=== PATIENT | female | born 1950 | race Caucasian/White ===

== ENCOUNTER 2017-07-20 00:01 | Inpatient (IN) ==
--- NOTE | 2017-07-20 00:47 | Emergency Department Note ---
IKen Emily, am scribing for, and in the presence of, Piotr Cm MD 00: 44. Soila Faria Charles R, MD, personally performed the services described in this documentation, ascribed by Felicia Rogers in my presence, and it is both accurate and complete . Arrival - Arrival Chief Complaint: Chest Pain Stated Complaint: Chest Pain transfer to from [facility] ED Nursing Triage Note: Patient was transfered from [facility] for chest pains and SOB. The patient stated that she was at home in the bed watching TV and started to have CP and when she got up to call for help she noticed that she was also having some SOB. The patient has a cardiac history, so she went to ER for Eval. Mode of Arrival: Stretcher Limitations: No Limitations Source: Patient Time Seen by Provider: 07/20/17 00:19 - History of Present Illness HPI Narrative: Pt is a 66 y/o female who was transferred from [facility] to ED for further evaluation of chest pain with SOB that suddenly started tonight while laying in the bed watching TV. She reports cutting grass, cleaning yard, shower and made dinner earlier yesterday, then laid down to watch TV when pain started. Pt describes pain in between breasts, pressure and squeezing sensation that would pulsate, in which would ease up some and start again. She states she went to living room where daughter was and realized she was having difficulty breathing. Pt had nausea going to the first facility but denies any now or neck or back pain. Pt has had 8 stents in 10 years and diet controlled borderline DM. Family reports pt had neck stiffness but no chest pain with past heart issues, but was unaware of sxs related to heart attacks. Onset (ago): hour(s) Consistency: constant Severity: mild, moderate Severity scale (1-10): 4 Quality: aching Allergies/Adverse Reactions: Allergies Allergy/AdvReac Type Severity Reaction Status Date / Time No Known Allergies Allergy Verified 08/16/15 20:04 Review of System - Review of System 12 point system: reviewed and no additional remarkable complaints except as stated - Review of System Constitutional: Absent: chills, diaphoresis, fever Respiratory: Present: respiratory distress (SOB). Absent: cough Cardiovascular: Present: chest pain (mid pressure and squeezing sensation). Absent: syncope Gastrointestinal: Present: nausea. Absent: abdominal pain, vomiting Genitourinary female: Absent: dysuria Musculoskeletal: Absent: back pain, leg pain, neck pain Skin: Absent: rash Neurological: Absent: headache Medical,Surgical,& Family Hx - Medical History Musculoskeletal: No history of: Amputation - Surgical History Cardiac Surgeries: Patient Denies: Cardiac Catheterization Thoracic Surgeries: Patient denies;: Organ Transplant, Lobectomy Neurologic Surgeries: Patient denies: Neurologic Surgery HEENT Surgeries: Patient denies: Tonsilectomy & Adenoidectomy Abdominal Surgeries: Patient denies: Abdominal Surgery - Family History Family History: Reports;: Family Diabetes, Family Heart Disease Denies;: Family Anesthesia Reaction, Family Cancer - Social History Smoking Status: Never smoker Frequency of Alcohol Use: None Type of Drug Use: None Marital Status: Single Lives With:: Children Functional capacity: independent ambulation Exam Vital Signs: Vital Signs Temperature 98.9 F 07/20/17 00:03 Pulse Rate 58 L 07/20/17 00:03 Respiratory Rate 18 07/20/17 00:03 Blood Pressure 158/60 07/20/17 00:03 O2 Sat by Pulse Oximetry 97 07/20/17 00:03 - General General appearance: alert, in no apparent distress - Head Head exam: Present: atraumatic, normocephalic - Eye Eye exam: Present: PERRL, EOMI - ENT ENT exam: Present: mucous membranes moist. Absent: mucous membranes dry - Neck Neck exam: Present: full ROM, trachea midline - Chest Chest inspection: Present: symmetric chest wall rise. Absent: tenderness - Respiratory Respiratory exam: Present: normal lung sounds bilaterally. Absent: respiratory distress - Cardiovascular Cardiovascular exam: Present: bradycardia, normal heart sounds - Extremities Exam Extremities exam: Present: full ROM, pedal edema (+1). Absent: tenderness - Neurological Exam Neurological exam: Present: alert, oriented X3, CN II-XII intact. Absent: motor sensory deficit - Psychiatric Psychiatric exam: Present: normal affect, normal mood - Skin Skin exam: Present: warm, dry Course - Consultations Consultation #1: Dr. Moura will admit patient Time: 00:45 Results - Labs Lab Results: I have reviewed the patients labs Labs: All results reviewed from previous facility cardiac enzymes are negative Disposition Clinical Impression: Chest pain, Atypical chest pain Case discussed with: patient, patient's family Disposition: Still a Patient Condition: Stable Time of Disposition: 00:45
[2017-07-20] MEDS ORDERED: MORPHINE 2 MG/1 ML SYRINGE IV PRN (02:16)
[2017-07-20] MEDS ORDERED: MAGNESIUM SULF RIDER 4 GM in PREMIX 1 EACH IV PRN (02:16)
[2017-07-20] MEDS ORDERED: SODIUM CHLORIDE 0.9% 1,000 ML IV SCH ×2 (02:16→11:00)
[2017-07-20] MEDS ORDERED: ONDANSETRON 4 MG/2 ML VIAL IV PRN (02:16)
[2017-07-20] MEDS ORDERED: GLUCAGON 1 MG VIAL IM PRN (02:16)
[2017-07-20] MEDS ORDERED: DEXTROSE 50% 25 GM/50 ML SYRINGE IV PRN (02:16)
[2017-07-20] MEDS ORDERED: MAGNESIUM SULF RIDER 2 GM in PREMIX 1 EACH IV PRN (02:16)
--- NOTE | 2017-07-20 02:20 | EKG Report ---
Stationary ECG Study [facility] ER Test Date: 07/20/2017 12:11:39 AM Pat Name: VIRI MAURER Department: Room: 277 Gender: F Health Information Specialist: : 1950 Requested by: Piotr Melgoza Order Number: [id number] Geronimo MD: JEFFY SAM Intervals [place] Rate: 51 P: 51 [place]: 204 QRS: 25 QRSD: 92 T: 39 QT: 416 QTc: 392 Interpretive Statements SINUS BRADYCARDIA LOW QRS VOLTAGE IN PRECORDIAL LEADS Electronically Signed On 07-20-17 17:12:18 CDT by JEFFY SAM [email or web address]
[2017-07-20 03:27] LABS: Basophils # 0.1 10*3/uL (0.0-0.2); Basophils % 1.1 % (0.0-0.8); Eosinophils # 0.3 10*3/uL (0.0-0.87); Eosinophils % 3.2 % (0.00-10.9); Hematocrit 39.2 VOL% (35.7-47.0); Hemoglobin 13.5 GM/DL (12.0-16.0); Immature Granulocytes % 0.4 %; Immature Granulocytes Absolute 0.03 #; Lymphocytes # 3.6 10*3/uL (1.4-4.0); Lymphocytes % 42.4 % (21.3-54.2); Mean Corpuscular HGB Conc 34.4 GM/DL (32-36); Mean Corpuscular Hemoglobin 30 PG (27-34); Mean Corpuscular Volume 86.2 FL (87-102); Mean Platelet Volume 10.9 FL (9.6-12.0); Monocytes # 0.5 10*3/uL (0.11-0.8); Monocytes % 5.8 % (1.7-12.7); Neutrophils % 47.1 % (38.7-73.9); Platelet Count 197 T/CUMM (130-400); Red Blood Count 4.55 MC/CUMM (3.8-5.5); Red Cell Distribution Width 13.2 % (9.3-17.3); White Blood Count 8.6 T/CUMM (4-12)
[2017-07-20 04:16] LABS: Troponin I Only < 0.015 NG/ML (0.00-0.045)
[2017-07-20 04:23] LABS: Albumin 3.6 G/DL (3.4-5.0); Bilirubin,Total 0.6 MG/DL (0.2-1.0); Calcium 8.8 MG/DL (8.5-10.1); Magnesium 2.1 MG/DL (1.8-2.4); Osmolality,Calculated 284.1 MOS/KG (273-304); Potassium 3.3 MMOL/L (3.5-5.1); Risk Ratio 3.75; Thyroid Stimulating Hormone 3.62 uIU/ml (0.358-3.74); Total Protein 6.3 G/DL (6.4-8.3); VLDL CHOLESTEROL 36.2 MG/DL
[2017-07-20] MEDS ORDERED: ENOXAPARIN 80 MG/0.8 ML SYRINGE SUBCUT SCH (06:00)
[2017-07-20] MEDS: NITROGLYCERIN 2% OINT 1 INCH/GM PACK TOP SCH ×2 (06:24→12:22)
[2017-07-20] MEDS ORDERED: ASPIRIN EC 325 MG TABLET PO SCH (09:00)
--- NOTE | 2017-07-20 09:07 | Cardiology History & Physical ---
<Roxana Stokes E - Last Filed: 07/20/17 09:55> Assessment and Plan - Time spent with patient Time spent with patient: Greater than 30 minutes (due to assessment, plan, and documentation) (1) Chest pain Status: Acute Assessment and plan: See plan of care listed below. Current Visit: Yes (2) Coronary artery disease Status: Chronic Assessment and plan: See plan of care listed below. Current Visit: Yes (3) Hypertension Status: Chronic Assessment and plan: See plan of care listed below. Current Visit: Yes (4) Hyperlipidemia Status: Chronic Assessment and plan: See plan of care listed below. Current Visit: Yes (5) SIDRA (obstructive sleep apnea) Status: Chronic Assessment and plan: See plan of care listed below. Current Visit: Yes (6) Obesity (BMI 30.0-34.9) Status: Chronic Assessment and plan: See plan of care listed below. 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 Moura PCP: Dr. Calvert Ms. Enrique is a 66 year old female who was transferred to our facility from [facility] in [place], [place] for further evaluation of chest pain. She has a history of coronary artery disease, hypertension, hyperlipidemia, LVH, obstructive sleep apnea, and obesity. She has a family history of premature CAD and is a former smoker. Her last cardiac catheterization October 2011 revealed patent stent to distal circumflex and proximal RCA. June 2016 echocardiogram demonstrated ejection fraction 55%, mild TR, and moderate to severe LVH. She was recently seen by Dr. 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 Ms. Enrique had a sudden onset of chest pain that began last night while lying in bed watching TV. She tells me that she worked outside all day yesterday without difficulty. 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 She states that she had been lying in bed for some time before her pain started. She notes that she had turned onto her right side and then she felt as if someone had grabbed her in the chest. She reports a midsternal pressure and squeezing sensation that she reports felt as if someone had a "vice metal grader" on her chest. She states she was unable to take a deep breath and felt as if it was difficult for her to breathe. This discomfort waxed and waned a few minutes before she called for her daughter, Quita, who was in the living room, to take her to the emergency room. She reports prior to leaving home, the pain had subsided and she only felt a "tightness" in her chest on the way to [place]. She is unsure how long the "grabbing" sensation lasted but believes it was no longer than 10-15 minutes. She notes no exacerbating or alleviating factors, nor any radiation of the pain. En route to [place], she had 2 waves of nausea without vomiting. She notes that she was not "in pain" upon arrival at [place], but received a sublingual nitroglycerin followed by 4 baby aspirin. Her other daughter reports she appeared diaphoretic and clammy when she arrived at the hospital during the night. She had a subsequent episode of chest pain while in the ER at [place] and was given a second nitroglycerin which she thinks helped her discomfort. She was then transferred to our facility for further evaluation where we were called to admit her. Ms. Enrique states it is not unusual for her to be sedentary for a couple of days and then decide to do lots of activity in one day (such as rearranging furniture ). She reports she did not have any exertional symptoms while performing her yardwork yesterday and states she did not really do more than she normally would. She does admit that she has had some dyspnea on exertion recently when walking approximately 74 yards uphill to her barn, but is unsure how long this has been going on. After being transferred to telemetry last night, she does report her left arm throbbing from her shoulders to her fingers although she had no associated symptoms with this and did not have concurrent chest pain. ASSESSMENT/PLAN: 1. CHEST PAIN - Some typical and atypical features. She has had 2 sets of negative cardiac biomarkers and unremarkable EKG. Given her symptomatology and history, will further discuss with Dr. Moura risks and benefits of stress testing vs. left heart catheterization. We will continue to cycle cardiac biomarkers and EKGs and monitor. 2. CORONARY ARTERY DISEASE - Her last cardiac catheterization October 2011 revealed patent stent to distal circumflex and proximal RCA. Continue DAPT, ESTRADA , statin. Will continue beta enriqueta once we have determined further workup regarding stress testing vs. left heart catheterization. 3. HYPERTENSION - Has been well controlled, now elevated this morning. Will resume home medications. Will hold bystolic for now in case we proceed with nuclear stress testing. 4. HYPERLIPIDEMIA - According to her clinic records, she is also on Crestor 20mg po daily which we will resume. Will repeat lipid panel. 5. OBSTRUCTIVE SLEEP APENA - Continue CPAP while asleep. 6. OBESITY - Encouraged lifestyle modifications with diet and exercise. 7. FORMER SMOKER Home Medications Medication Instructions Recorded Confirmed Type Aspirin [Ecotrin] 81 mg PO DAILY 07/20/17 07/20/17 History Clopidogrel [Plavix] 75 mg PO DAILY 07/20/17 07/20/17 History Furosemide 40 mg PO DAILY 07/20/17 07/20/17 History Lansoprazole 30 mg PO BID 07/20/17 07/20/17 History Nebivolol [Bystolic] 5 mg PO DAILY 07/20/17 07/20/17 History Quinapril [Accupril] 10 mg PO DAILY 07/20/17 07/20/17 History Allergies Allergy/AdvReac Type Severity Reaction Status Date / Time No Known Allergies Allergy Verified 08/16/15 20:04 Review of systems: - Constitutional: Present: fatigue, As per HPI. Absent: anorexia, chills, daytime sleepiness, excessive sweating, fever(s), frequent falls, headache(s), increased appetite, lethargy, malaise, night sweats, stops breathing during sleep, weakness, weight gain, weight loss. - EENT Eyes: Present: As per HPI. Absent: blurry vision, diplopia, loss of vision Ears: Present: As per HPI. Absent: decreased hearing, ear discharge, ear pain Nose, mouth and throat: Present: As per HPI. Absent: dysphagia, epistaxis, headache(s), hoarseness, lip swelling, nasal congestion, neck mass, neck pain, sinus pressure, sore throat, throat swelling, tongue swelling, vertigo - Cardiovascular: Present: chest pain at rest, dyspnea, occasional edema, diaphoresis, as per HPI. Absent: chest pain with activity, dyspnea on exertion , claudication, radiating jaw, neck or arm pain, lightheadedness, orthopnea, palpitations, PND - Respiratory: Present: dyspnea, as per HPI. Absent: dyspnea on exertion, cough , hemoptysis, wheezing, snoring, pain on inspiration - Gastrointestinal: Present: nausea, As per HPI. Absent: abdominal pain, bloating, change in bowel habits, constipation, diarrhea, heartburn, hematemesis , hematochezia, loose stools, melena, vomiting - Genitourinary: Present: As per HPI. Absent: difficulty urinating, dysuria, flank pain, hematuria, nocturia, urinary frequency, urinary incontinence - Musculoskeletal: Present: As per HPI. Absent: arthralgias, back pain, joint swelling, limited range of motion, muscle cramps, muscle weakness, myalgias - Neurological: Present: dizziness, As per HPI. Absent: abnormal gait, abnormal speech, behavioral changes, confusion, convulsions, disequilibrium, focal weakness, frequent falls, headache(s), memory loss, numbness, paresthesias, radicular pain, syncope, tremor(s) - Psychiatric: Present: As per HPI. Absent: anxiety, confusion, depression, panic attacks - Endocrine: Present: fatigue, As per HPI. Absent: cold intolerance, heat intolerance, polydipsia, polyphagia - Hematologic/Lymphatic: Present: As per HPI. Absent: easy bleeding, easy bruising, lymphadenopathy Medical,Surgical,& Family Hx - Medical History Cardio: History of: CAD, Hypertension, [place] Endocrine: History of: Dyslipidemia Respiratory: History of: Obstructive Sleep Apnea Gastrointestinal: History of: GERD Musculoskeletal: History of: Back/Neck Problems (arthritis) No history of: Amputation - Surgical History Cardiac Surgeries: Sugical HX of: Cardiac Catheterization (stents x 7) Thoracic Surgeries: Patient denies;: Organ Transplant, Lobectomy Neurologic Surgeries: Patient denies: Neurologic Surgery HEENT Surgeries: Patient denies: Thyroid Surgery, Tonsilectomy & Adenoidectomy Abdominal Surgeries: Surgical HX of: Abdominal Surgery, Appendectomy, Cholecystectomy Reproductive Surgeries: Surgical HX of;: Breast Surgery, Gynecologic Surgery, Hysterectomy Patient denies;: Genitourinary Surgery - Family History Family History: Reports;: Family Diabetes, Family Heart Disease Denies;: Family Anesthesia Reaction, Family Cancer - Social History Smoking Status: Former smoker Frequency of Alcohol Use: None Type of Drug Use: None Marital Status: Lives With:: Children Functional capacity: independent ambulation Cardiology Physical Exam - Constitutional Vitals: Vital Signs Temp Pulse Resp BP Pulse Ox 97.9 F 60 18 189/76 93 L 07/20/17 08:00 07/20/17 08:00 07/20/17 08:00 07/20/17 08:00 07/20/17 08:00 Intake and Output 07/19/17 07/20/17 07/20/17 22:59 06:59 14:59 Intake Total 0 / 0 Balance 0 / 0 Intake: Oral 0 / 0 Other: # Voids 1 # Bowel Movements 0 Weight 183 lb 6 oz Exam: General appearance: Pleasant and cooperative. Overweight, no acute distress. Head exam: Present: normal inspection, normocephalic, atraumatic. Absent: hematoma, laceration Eye exam: Present: EOMI. Absent: conjunctival injection, nystagmus, periorbital swelling, scleral icterus, laceration to eyelids Pupils: Present: PERRL. Absent: constricted, dilated, fixed, irregular, unequal ENT exam: Present: normal exam, normal external ear exam Neck exam: Present: normal inspection. Absent: lymphadenopathy, meningismus, tenderness, thyromegaly, carotid bruit Respiratory exam: Present: clear to auscultation bilaterally. Absent: accessory muscle use, chest wall tenderness, rales, rhonchi, wheezing. Cardiovascular exam: Present: regular rate and rhythm. Absent: gallop, JVD, rubs, murmur GI/Abdominal exam: Present: normal bowel sounds, soft. Absent: distended, firm , guarding, hernia, mass, tenderness, rebound. Extremities exam: Present: normal inspection, normal capillary refill. Upper extremity pulses 2+. Lower extremity pulses 2+. Absent: calf tenderness, edema Musculoskeletal: Present: No Fluid Collection, No Pain, Normal Range of Motion Back exam: Present: normal inspection. Absent: muscle spasm, vertebral tenderness Neurological exam: Present: alert, oriented X3, grossly intact without resting or essential tremor Psychiatric exam: Present: normal affect, normal mood Skin exam: Present: normal color, warm, dry, intact. Absent: cyanosis, diaphoretic, rash, urticaria Result/EKG - Labs CBC & BMP: 07/20/17 03:22 07/20/17 03:22 Lab Results: I have reviewed the past 24 hour labs Labs: Laboratory Results - last 24 hr 07/20/17 07/20/17 07/20/17 03:21 03:22 03:22 WBC 8.6 RBC 4.55 Hgb 13.5 Hct 39.2 MCV 86.2 L MCH 30 MCHC 34.4 RDW 13.2 Plt Count 197 MPV 10.9 Neut % (Auto) 47.1 Lymph % (Auto) 42.4 [place] % (Auto) 5.8 Eos % (Auto) 3.2 Baso % (Auto) 1.1 H Neut # (Auto) 4.0 Lymph # (Auto) 3.6 [place] # (Auto) 0.5 Eos # (Auto) 0.3 Baso # (Auto) 0.1 Immature Gran % 0.4 Nucleated RBC % 0.0 Immature Gran # 0.03 Nucleated RBCs # 0.00 Immature Plt Fraction 0.0 Sodium Potassium Chloride Carbon Dioxide Anion Gap BUN Creatinine GFR Calculation BUN/Creatinine Ratio Glucose Calculated Osmolality Calcium Magnesium Total Bilirubin AST ALT Alkaline Phosphatase Total Creatine Kinase 29 CK-MB (CK-2) < 1.0 Troponin I < 0.015 B-Natriuretic Peptide 9 Total Protein Albumin Globulin Albumin/Globulin Ratio Triglycerides Cholesterol LDL Cholesterol VLDL Cholesterol HDL Cholesterol Heart Disease Risk Ratio Free T4 TSH 3rd Generation 07/20/17 07/20/17 03:22 03:22 WBC RBC Hgb Hct MCV MCH MCHC RDW Plt Count MPV Neut % (Auto) Lymph % (Auto) [place] % (Auto) Eos % (Auto) Baso % (Auto) Neut # (Auto) Lymph # (Auto) [place] # (Auto) Eos # (Auto) Baso # (Auto) Immature Gran % Nucleated RBC % Immature Gran # Nucleated RBCs # Immature Plt Fraction Sodium 142 Potassium 3.3 L Chloride 108 H Carbon Dioxide 30 Anion Gap 7.3 BUN 14 Creatinine 0.80 GFR Calculation 82 BUN/Creatinine Ratio 17.00 Glucose 109 H Calculated Osmolality 284.1 Calcium 8.8 Magnesium 2.1 Total Bilirubin 0.60 AST 14 ALT 19 Alkaline Phosphatase 107 Total Creatine Kinase CK-MB (CK-2) Troponin I B-Natriuretic Peptide Total Protein 6.3 L Albumin 3.6 Globulin 2.7 Albumin/Globulin Ratio 1.3 Triglycerides 181 H Cholesterol 120 LDL Cholesterol 63.0 VLDL Cholesterol 36.2 HDL Cholesterol 32 L Heart Disease Risk Ratio 3.75 Free T4 1.23 TSH 3rd Generation 3.620 - EKG EKG results: interpreted by me, sinus rhythm <MartellKiaKaylee - Last Filed: 07/20/17 14:07> History of Present Illness History of present illness: I have personally interviewed and evaluated the patient, reviewed the chart and discussed medical decision-making with practitioner Kike. I have read this note and agree with her documentation here in. We discussed options with the patient, and finally agreed we will proceed with left heart catheterization given the nature of her symptoms and how frightening they were, and her underlying severe coronary artery disease. Cardiology Physical Exam - Constitutional Vitals: Vital Signs Temp Pulse Resp BP Pulse Ox 98.0 F 53 L 18 146/82 95 07/20/17 11:47 07/20/17 11:47 07/20/17 11:47 07/20/17 11:47 07/20/17 11:47 Intake and Output 07/19/17 07/20/17 07/20/17 23:59 07:59 15:59 Intake Total 0 / 0 Balance 0 / 0 Intake: Oral 0 / 0 Other: # Voids 1 # Bowel Movements 0 Weight 83.178 kg Patient Weight 07/20/17 23:59 Weight 83.178 kg Result/EKG - Labs CBC & BMP: 07/20/17 03:22 07/20/17 03:22 Labs: Laboratory Results - last 24 hr 07/20/17 07/20/17 07/20/17 03:21 03:22 03:22 WBC 8.6 RBC 4.55 Hgb 13.5 Hct 39.2 MCV 86.2 L MCH 30 MCHC 34.4 RDW 13.2 Plt Count 197 MPV 10.9 Neut % (Auto) 47.1 Lymph % (Auto) 42.4 [place] % (Auto) 5.8 Eos % (Auto) 3.2 Baso % (Auto) 1.1 H Neut # (Auto) 4.0 Lymph # (Auto) 3.6 [place] # (Auto) 0.5 Eos # (Auto) 0.3 Baso # (Auto) 0.1 Immature Gran % 0.4 Nucleated RBC % 0.0 Immature Gran # 0.03 Nucleated RBCs # 0.00 Immature Plt Fraction 0.0 Sodium Potassium Chloride Carbon Dioxide Anion Gap BUN Creatinine GFR Calculation BUN/Creatinine Ratio Glucose POC Glucose Calculated Osmolality Calcium Magnesium Total Bilirubin AST ALT Alkaline Phosphatase Total Creatine Kinase 29 CK-MB (CK-2) < 1.0 Troponin I < 0.015 B-Natriuretic Peptide 9 Total Protein Albumin Globulin Albumin/Globulin Ratio Triglycerides Cholesterol LDL Cholesterol VLDL Cholesterol HDL Cholesterol Heart Disease Risk Ratio Free T4 TSH 3rd Generation 07/20/17 07/20/17 07/20/17 03:22 03:22 10:20 WBC RBC Hgb Hct MCV MCH MCHC RDW Plt Count MPV Neut % (Auto) Lymph % (Auto) [place] % (Auto) Eos % (Auto) Baso % (Auto) Neut # (Auto) Lymph # (Auto) [place] # (Auto) Eos # (Auto) Baso # (Auto) Immature Gran % Nucleated RBC % Immature Gran # Nucleated RBCs # Immature Plt Fraction Sodium 142 Potassium 3.3 L Chloride 108 H Carbon Dioxide 30 Anion Gap 7.3 BUN 14 Creatinine 0.80 GFR Calculation 82 BUN/Creatinine Ratio 17.00 Glucose 109 H POC Glucose Calculated Osmolality 284.1 Calcium 8.8 Magnesium 2.1 Total Bilirubin 0.60 AST 14 ALT 19 Alkaline Phosphatase 107 Total Creatine Kinase 41 D CK-MB (CK-2) 1.1 Troponin I < 0.015 B-Natriuretic Peptide Total Protein 6.3 L Albumin 3.6 Globulin 2.7 Albumin/Globulin Ratio 1.3 Triglycerides 181 H Cholesterol 120 LDL Cholesterol 63.0 VLDL Cholesterol 36.2 HDL Cholesterol 32 L Heart Disease Risk Ratio 3.75 Free T4 1.23 TSH 3rd Generation 3.620 07/20/17 07/20/17 10:20 11:59 WBC RBC Hgb Hct MCV MCH MCHC RDW Plt Count MPV Neut % (Auto) Lymph % (Auto) [place] % (Auto) Eos % (Auto) Baso % (Auto) Neut # (Auto) Lymph # (Auto) [place] # (Auto) Eos # (Auto) Baso # (Auto) Immature Gran % Nucleated RBC % Immature Gran # Nucleated RBCs # Immature Plt Fraction Sodium Potassium Chloride Carbon Dioxide Anion Gap BUN Creatinine GFR Calculation BUN/Creatinine Ratio Glucose POC Glucose 103 Calculated Osmolality Calcium Magnesium Total Bilirubin AST ALT Alkaline Phosphatase Total Creatine Kinase CK-MB (CK-2) Troponin I B-Natriuretic Peptide Total Protein Albumin Globulin Albumin/Globulin Ratio Triglycerides 250 H Cholesterol 134 LDL Cholesterol 70.0 VLDL Cholesterol 50.0 HDL Cholesterol 32 L Heart Disease Risk Ratio 4.19 Free T4 TSH 3rd Generation
--- NOTE | 2017-07-20 09:18 | EKG Report ---
Stationary ECG Study [facility] Test Date: 07/20/2017 9:17 AM Pat Name: VIRI MAURER Department: Room: 277 Gender: F Analytical Statistician: ANGELI : 1950 Requested by: Piotr Melgoza Order Number: [id number] Reading MD: JEFFY SAM Intervals [place] Rate: 53 P: 42 [place]: 187 QRS: 33 QRSD: 97 T: 43 QT: 433 QTc: 416 Interpretive Statements SINUS BRADYCARDIA LOW QRS VOLTAGE IN PRECORDIAL LEADS Electronically Signed On 07-20-17 19:10:23 CDT by JEFFY SAM [id number]
--- NOTE | 2017-07-20 09:53 | XRay Report ---
XR chest 2V Indication: Shortness of breath. Chest 2 views: No comparison. The heart size and mediastinal contour are normal. The lungs and pleural spaces are clear. Bones are unremarkable. Impression: Negative chest. PROCEDURE INTERPRETED AT [facility] DEPARTMENT OF RADIOLOGY Final Report Signed by: Mj Santos M.D.
--- NOTE | 2017-07-20 09:53 | ECHO Report ---
Jennifer Enrique Exam Date: 07/20/2017 08:46 Referring Physician: Technologist: Shania Mortensen LRLINWOOD Age: 66 Ht (in): 63 Wt (lb): 183 Gender: F Exam Location: [facility] Echo Indications: chest pain, Dx. CAD BP: 118 / 50 HR: 55 Rhythm: bradycardia Technical Quality: good IMPRESSIONS Left ventricular ejection fraction is estimated at 60% with no regional wall motion abnormality. Mild concentric left ventricular hypertrophy with normal diastolic function. Tricuspid regurgitation velocities suggest a RVSP of 17 mmHg + RAP. MEASUREMENTS (Male / Female) Normal Values 2D ECHO LV Diastolic Diameter PLAX 4.7 cm 4.2 - 5.9 / 3.9 - 5.3 cm LV Systolic Diameter PLAX 2.4 cm LV Fractional Shortening PLAX 49.9 % IVS Diastolic Thickness 1.2 cm 0.6 - 1.0 / 0.6 - 0.9 cm IVS Systolic Thickness 1.6 cm LVPW Diastolic Thickness 1.1 cm 0.6 - 1.0 / 0.6 - 0.9 cm LVPW Systolic Thickness 1.5 cm RV Internal Dim ED PLAX 1.3 cm LVOT Diameter 2.0 cm Aortic Root Diameter 2.2 cm LA Systolic Diameter LX 3.7 cm 3.0 - 4.0 / 2.7 - 3.8 cm LA Ao Ratio 1.7 DOPPLER TR Peak Velocity 208.0 cm/s TR Peak Gradient 17.3 mmHg FINDINGS Left Ventricle Normal left ventricular cavity size. Mild concentric left ventricular hypertrophy with normal diastolic function. Left ventricular ejection fraction is estimated at 60% with no regional wall motion abnormality. Right Ventricle Normal right ventricular size. Right Atrium Normal right atrial size. Left Atrium Normal left atrial size. Mitral Valve Morphologically normal mitral valve. Aortic Valve The aortic valve is trileaflet and has normal motion. Tricuspid Valve Morphologically normal tricuspid valve. Trace tricuspid valve regurgitation. Tricuspid regurgitation velocities suggest a RVSP of 17 mmHg + RAP. Pulmonic Valve Morphologically normal pulmonic valve. Pericardium No pericardial effusion. Aorta Normal size aortic root and proximal ascending aorta. Loretta Sosa (Electronically Signed) Final Date: 20 July 2017 09:51
[2017-07-20] MEDS: INSULIN REGULAR 100 UNIT/ML SUBCUT SCH ×4 (09:56→20:45)
[2017-07-20] MEDS ORDERED: diphenhydrAMINE CAP 25 MG CAPSULE PO ONE (10:59)
[2017-07-20 11:30] LABS: Risk Ratio 4.19; Troponin I Only < 0.015 NG/ML (0.00-0.045)
[2017-07-20] MEDS: CLOPIDOGREL 75 MG TABLET PO SCH (12:04)
[2017-07-20] MEDS: QUINAPRIL 5 MG TABLET PO SCH (12:04)
[2017-07-20] MEDS: PANTOPRAZOLE 40 MG TABLET PO SCH (12:05)
[2017-07-20] MEDS ORDERED: DIAZEPAM 5 MG TABLET ONE (12:09)
[2017-07-20] MEDS ORDERED: DIAZEPAM 5 MG TABLET PO ONE (12:09)
[2017-07-20] MEDS: FUROSEMIDE 40 MG TABLET PO SCH (12:21)
[2017-07-20] MEDS ORDERED: HEPARIN/NACL 0.9% 2 UNITS/ML 1,000 ML IV ONE (13:28)
[2017-07-20] MEDS ORDERED: LIDOCAINE 1% 20 ML VIAL ONE ×2 (13:28→14:17)
[2017-07-20] MEDS ORDERED: MIDAZOLAM 2 MG/2 ML VIAL ONE ×2 (13:48→14:13)
[2017-07-20] MEDS ORDERED: fentaNYL 100 MCG/2 ML VIAL ONE (13:49)
--- NOTE | 2017-07-20 14:07 | History and Physical Update ---
Sedation H&P Update - Dictation Physical: refer to H&P completed by admitting physician - Physical Exam Mental Status: alert and oriented Heart: regular rate and rhythm Lung: clear to auscultation Abdomen: within normal limits Vitals: within normal limits - Sedation Plan for Sedation: moderate Patient Consent: Procedure disscussed with patient and patinet has consented., Risks and benefits were discussed with patient,including infection,, bleeding, injury to surrounding structures, seizure, temporary nerve, Patient understands and accepts potential risks/benefits and agrees to, proceed. ASA Class: IV
[2017-07-20] MEDS ORDERED: ACETAMINOPHEN/CODEINE 300-30 MG TABLET PO PRN (14:44)
[2017-07-20] MEDS ORDERED: ACETAMINOPHEN 325 MG TABLET PO PRN (14:44)
--- NOTE | 2017-07-20 14:59 | Cardiology Operative Report ---
Date of Procedure:: 07/20/17 Pre-op diagnosis: Coronary artery disease, chest pain Post-op diagnosis: other (Stable coronary artery disease) Procedure: 1. Selective left and right coronary angiography. 2. Left heart catheterization with left ventriculogram. 3. Right iliac angiography to rule out vascular complications. Impression: 1. Stable coronary artery disease. A. Patent stent in the mid to distal circumflex artery. B. Patent stents in the proximal, mid and distal right coronary artery. C. Mid LAD with 50-60% stenosis. 2. Co-dominant coronary arteries. 3. Ejection fraction 60 %. 4. Angiographically normal right iliac artery without evidence of vascular complications. Plan: 1. Medical management. 2. Noncardiac workup if symptoms. Equipment: Diagnostic 6 [place] JL4, JR4, pigtail catheters. Hemodynamics: Aortic pressure 120/38 mmHg, left ventricular pressure 124/5 mmHg, LVEDP 14 mmHg Sedation: Versed 4 mg, fentanyl 100 mcg Procedure: After informed consent was obtained the patient was prepped and draped in sterile fashion. The right groin was infiltrated with 1% lidocaine and the right femoral artery was accessed via modified Seldinger technique using a micropuncture needle and a 6 [place] femoral arterial sheath was placed. All catheter exchanges were performed over a guidewire under fluoroscopic guidance. Diagnostic 6 [place] JL4 and JR4 catheters were advanced to the left and right coronary arteries respectively and multiple cineangiograms were performed in varying degrees of obliquity and angulation. Thereafter a pigtail catheter was advanced into the left ventricle where hemodynamics were obtained followed by left ventriculogram. At conclusion of the procedure right iliac angiography was performed to rule out vascular complications. Findings: 1. The left main artery is angiographically normal. 2. The left anterior descending artery extends to the apex. There is mild to moderate atheromatous disease throughout the vessel with up to 50-60% stenosis in the mid segment between the first and second diagonal arteries. 3. There is not an intermediate ramus branch. 4. The circumflex artery is a codominant vessel that gives supply to a posterior lateral branch. There is mild to moderate atheromatous disease in the vessel with a patent stent in the more distal mid segment. There is no obstructive disease identified. 5. The right coronary artery is a codominant vessel that gives rise to a posterior descending artery. There are stents in the proximal, mid and distal segment which are patent. There are mild luminal irregularities throughout the vessel, and some mild late lumen loss within the stents, but no obstructive atherosclerosis. 6. Ejection fraction is 60 % with normal anterior, inferior and apical wall motion. 7. Mild mitral regurgitation. 8. No significant aortic stenosis. 9. The right iliac artery is angiographically normal without evidence of vascular complications. Contrast use: Omnipaque 91 cc Fluoro time: 2.3 minutes Complications: none Specimens removed: none Devices implanted: none Anesthesia: moderate conscious sedation Surgeon / Physician: Kaylee Moura Estimated blood loss: minimal Specimens: none sent Condition: stable Disposition: floor
[2017-07-20] MEDS: POTASSIUM CHLORIDE 20 MEQ TABLET PO PRN ×3 (16:51→21:04)
[2017-07-20 18:54] LABS: Troponin I Only 0.017 NG/ML (0.00-0.045)
[2017-07-21 04:53] LABS: Basophils # 0.1 10*3/uL (0.0-0.2); Basophils % 0.9 % (0.0-0.8); Eosinophils # 0.2 10*3/uL (0.0-0.87); Eosinophils % 2.8 % (0.00-10.9); Hematocrit 40.7 VOL% (35.7-47.0); Hemoglobin 13.4 GM/DL (12.0-16.0); Immature Granulocytes % 0.5 %; Immature Granulocytes Absolute 0.04 #; Lymphocytes # 2.7 10*3/uL (1.4-4.0); Lymphocytes % 34.8 % (21.3-54.2); Mean Corpuscular HGB Conc 32.9 GM/DL (32-36); Mean Corpuscular Hemoglobin 29 PG (27-34); Mean Corpuscular Volume 88.1 FL (87-102); Mean Platelet Volume 11.5 FL (9.6-12.0); Monocytes # 0.5 10*3/uL (0.11-0.8); Monocytes % 6.6 % (1.7-12.7); Neutrophils # 4.3 10*3/uL (1.4-7.4); Neutrophils % 54.4 % (38.7-73.9); Platelet Count 191 T/CUMM (130-400); Red Blood Count 4.62 MC/CUMM (3.8-5.5); Red Cell Distribution Width 13.2 % (9.3-17.3); White Blood Count 7.8 T/CUMM (4-12)
[2017-07-21 05:09] LABS: Calcium 8.9 MG/DL (8.5-10.1); Magnesium 2.4 MG/DL (1.8-2.4); Osmolality,Calculated 285.7 MOS/KG (273-304); Potassium 4.4 MMOL/L (3.5-5.1)
--- NOTE | 2017-07-21 06:57 | CT Report ---
Exam: CT chest PE study Date: 07/21/2017 4:00 AM Indication: Chest pain shortness of breath Comparison: Routine chest 07/20/2017 Technical: Images were obtained from the thoracic inlet through the lung bases with 80 cc of Omnipaque 350 with axial and coronal imaging available for review. Dose reduction was performed with decreasing kv and mA and automated exposure. 3-D MIP images were obtained Findings: The pulmonary outflow tract, left and right proximal pulmonary arteries, first-order, second-order and third order branches reveal no evidence of pulmonary thromboemboli. The lungs are clear without infiltrates or effusions. Minimal atelectatic change or scarring in the right base. The mediastinum structures are demonstrated without acute findings. A few small tiny nodes are present less than 1 cm. The bony structures reveal mild degenerative changes present. Vascular calcification of the aorta. The heart is normal in size. The liver and spleen are unremarkable. The pancreas reveals some fatty infiltration. Previous cholecystectomy clips are present. The adrenal glands are unremarkable. The proximal left kidney is intact . Stomach is incompletely distended. Impression: 1. No evidence of pulmonary thromboemboli. 2. Minimal scarring in the right base without acute pathology. 3. Vascular plaque in the aorta PROCEDURE INTERPRETED AT [facility] DEPARTMENT OF RADIOLOGY Final Report Signed by: Dr. Natanael Berrios
[2017-07-21] MEDS: CLOPIDOGREL 75 MG TABLET PO SCH (08:27)
[2017-07-21] MEDS: FUROSEMIDE 40 MG TABLET PO SCH (08:27)
[2017-07-21] MEDS: PANTOPRAZOLE 40 MG TABLET PO SCH (08:27)
[2017-07-21] MEDS: QUINAPRIL 5 MG TABLET PO SCH (08:27)
[2017-07-21] MEDS: INSULIN REGULAR 100 UNIT/ML SUBCUT SCH ×2 (08:28→12:12)
[2017-07-21] MEDS ORDERED: ASPIRIN EC 81 MG TABLET PO SCH (09:00)
[2017-07-21 12:30] VITALS: BP 129/60
--- NOTE | 2017-07-21 12:35 | Discharge Summary ---
Hospital Course - Hospital Course Hospital Course: The patient has a history of coronary artery disease, and was admitted with chest pain. Her cardiac biomarkers were negative, ECG was stable. Her chest pain had some typical characteristics to it, so she was taken to the cardiac catheterization lab on July 20, 2017. Please see that report for full details. In general, it demonstrated stable coronary artery disease. She underwent CT PE protocol which did not demonstrate any significant pulmonary embolism or acute pathology. She did not have any recurrent symptoms during her hospital stay, and she is being discharged home in stable condition. She should follow-up with me in 1-2 weeks. Discharge Plan - Discharge Data Disposition: Disch To Home/Self Care Condition at Discharge: Stable Discharge Diet: heart healthy Activity: no lifting (For 1 week) Hygiene: may shower Driving: not for (1 week) - Discharge Medications Continue Quinapril [Accupril] 10 mg PO DAILY Lansoprazole 30 mg PO BID Clopidogrel [Plavix] 75 mg PO DAILY Furosemide 40 mg PO DAILY Aspirin [Ecotrin] 81 mg PO DAILY Nebivolol [Bystolic] 5 mg PO DAILY - Follow Up or Referral Follow Up: Kaylee Moura MD [Physician] - 2 Weeks - Forms/Instructions Exam - Constitutional Vitals: Period Temp Pulse Resp BP Sys/Hargrove Pulse Ox Last 24 Hr 96.9 F-98.2 F 54-63 16-20 114-151/33-69 95-100 Exam: General appearance: normal weight, no acute distress - Head Head exam: Present: normal inspection, normocephalic, atraumatic. Absent: hematoma, laceration - Eye Eye exam: Present: EOMI. Absent: conjunctival injection, nystagmus, periorbital swelling, scleral icterus, laceration to eyelids Pupils: Present: PERRL. Absent: constricted, dilated, fixed, irregular, unequal - ENT ENT exam: Present: normal exam, normal external ear exam - Neck Neck exam: Present: normal inspection. Absent: lymphadenopathy, meningismus, tenderness, thyromegaly - Respiratory Respiratory exam: Present: clear to auscultation bilaterally. Absent: accessory muscle use, chest wall tenderness - Cardiovascular Cardiovascular exam: Present: regular rate and rhythm. Absent: carotid bruit, gallop, JVD, rubs - GI/Abdominal GI/Abdominal exam: Present: normal bowel sounds, soft. Absent: distended, firm , guarding, hernia, mass, tenderness, rebound. - Extremities Exam Extremities exam: Present: normal inspection, normal capillary refill. Absent: calf tenderness, edema - Back Exam Back exam: Present: normal inspection. Absent: muscle spasm, vertebral tenderness - Neurological Exam Neurological exam: Present: alert, oriented X3, grossly intact without resting or intention tremor - Psychiatric Psychiatric exam: Present: normal affect, normal mood - Skin Skin exam: Present: normal color, warm, dry, intact. Absent: cyanosis, diaphoretic, rash, urticaria Right groin is without hematoma or bruit, right femoral and posterior tibialis pulses are 3+. Discharge Results Procedures and tests throughout hospitalization: Pending Orders 07/20/17 13:44 CL heart Routine 07/22/17 04:00 BMP w/ Mg [Basic Metabolic Panel w/Mg] IN AM Comp Blood Count Auto Diff IN AM 07/23/17 04:00 BMP w/ Mg [Basic Metabolic Panel w/Mg] IN AM Comp Blood Count Auto Diff IN AM Labs on day of discharge: Labs from last 24 hours 07/21/17 07/21/17 07/21/17 12:12 07:43 03:21 WBC RBC Hgb Hct MCV MCH MCHC RDW Plt Count MPV Neut % (Auto) Lymph % (Auto) Mcminn % (Auto) Eos % (Auto) Baso % (Auto) Neut # (Auto) Lymph # (Auto) Mcminn # (Auto) Eos # (Auto) Baso # (Auto) Immature Gran % Nucleated RBC % Immature Gran # Nucleated RBCs # Immature Plt Fraction Sodium 145 Potassium 4.4 Chloride 112 H Carbon Dioxide 27 Anion Gap 10.4 BUN 11 Creatinine 0.70 GFR Calculation 96 BUN/Creatinine Ratio 15.00 Glucose 82 POC Glucose 85 109 H Calculated Osmolality 285.7 Calcium 8.9 Magnesium 2.4 Total Creatine Kinase CK-MB (CK-2) Troponin I 07/21/17 07/20/17 07/20/17 03:21 20:07 18:10 WBC 7.8 RBC 4.62 Hgb 13.4 Hct 40.7 MCV 88.1 MCH 29 MCHC 32.9 RDW 13.2 Plt Count 191 MPV 11.5 Neut % (Auto) 54.4 Lymph % (Auto) 34.8 Mcminn % (Auto) 6.6 Eos % (Auto) 2.8 Baso % (Auto) 0.9 H Neut # (Auto) 4.3 Lymph # (Auto) 2.7 Mcminn # (Auto) 0.5 Eos # (Auto) 0.2 Baso # (Auto) 0.1 Immature Gran % 0.5 Nucleated RBC % 0.0 Immature Gran # 0.04 Nucleated RBCs # 0.00 Immature Plt Fraction 0.0 Sodium Potassium Chloride Carbon Dioxide Anion Gap BUN Creatinine GFR Calculation BUN/Creatinine Ratio Glucose POC Glucose 142 H Calculated Osmolality Calcium Magnesium Total Creatine Kinase 51 D CK-MB (CK-2) 1.0 Troponin I 0.017 07/20/17 16:08 WBC RBC Hgb Hct MCV MCH MCHC RDW Plt Count MPV Neut % (Auto) Lymph % (Auto) Mcminn % (Auto) Eos % (Auto) Baso % (Auto) Neut # (Auto) Lymph # (Auto) Mcminn # (Auto) Eos # (Auto) Baso # (Auto) Immature Gran % Nucleated RBC % Immature Gran # Nucleated RBCs # Immature Plt Fraction Sodium Potassium Chloride Carbon Dioxide Anion Gap BUN Creatinine GFR Calculation BUN/Creatinine Ratio Glucose POC Glucose 94 Calculated Osmolality Calcium Magnesium Total Creatine Kinase CK-MB (CK-2) Troponin I DS: Provider Date of admission: 07/20/17 00:47 Primary care physician: Mina Miller Attending physician on admission: Kaylee Moura, Consults: 07/20/17 02:16 Consult to Case Mgmt/Social Srvs [CONS] Routine Reason for Case Mgmt/Social Srvs: Rehab Discharging clinician: Kaylee Moura, Expected date of discharge: 07/21/17
== END 2017-07-21 13:35 | disposition home or self-care (01) | DRG 287 ==
LOC: EDUNIT# → EDBD → N.ED 00:01 → N.EDINP 00:47 → N.TELES 01:34
PROVIDERS: ADMIT Internal Medicine Cardiovascular Disease; ATTEND Internal Medicine Cardiovascular Disease
PROC: CLCCHCL (ICD-10-PCS; 2017-07-20 13:15)